=== PATIENT | male | born 1955 | race Caucasian/White ===

== ENCOUNTER 2022-06-09 14:45 | Outpatient (RCR) | payer OTHER | END 2022-06-11 | disposition home or self-care (01) | LOC: WSOH | DX: T22.211A Burn of second degree of right forearm, initial encounter (principal); Y99.0 Civilian activity done for income or pay ==

== ENCOUNTER 2022-06-12 14:27 | Outpatient (RCR) | payer OTHER | END 2022-07-12 | disposition home or self-care (01) | LOC: WSOH | DX: T22.211D Burn of second degree of right forearm, subsequent encounter (principal); Y99.0 Civilian activity done for income or pay ==